=== PATIENT | female | born 1945 | race African-American/Black ===

== ENCOUNTER 2017-10-18 15:59 | Emergency (ER) | payer MEDICARE, MEDICAID ==
[~2017-10-18] VITALS: Ht 162.6 cm; Wt 50.0 kg
[2017-10-18] MEDS ORDERED: TETANUS, DIPHTHERIA, PERTUSSIS VAC/PF 0.5ML (>7YR OLD) IM ONE (17:00)
[2017-10-18] MEDS ORDERED: CLONIDINE 0.2MG TABLET PO ONE (17:15)
[2017-10-18 17:29] LABS: CLARITY URINE CLOUDY (CLEAR); COLOR URINE YELLOW (YELLOW); KETONES URINE NEGATIVE (NEGATIVE); LEUKOCYTE ESTERASE URINE NEGATIVE (NEGATIVE); NITRITE URINE NEGATIVE (NEGATIVE); OCCULT BLOOD URINE NEGATIVE (NEGATIVE); PH URINE 5.5 (4.5-8.0); PROTEIN URINE NEGATIVE (NEGATIVE); SPECIFIC GRAVITY URINE 1.015 (1.005-1.030)
[2017-10-18 17:32] LABS: BASOPHILS % 0.6 % (0.0-2.0); EOSINOPHILS % 0.4 % (0.0-5.0); HEMATOCRIT. 36.2 % (36.0-48.0); HEMOGLOBIN. 12.3 g/dL (12.0-16.0); MEAN CORPUSCULAR HEMOGLOBIN 35.6 pg (28.0-32.0); MEAN CORPUSCULAR VOLUME 104.7 fL (81.0-99.0); MEAN PLATELET VOLUME 7.5 fl (7.4-10.4); PLATELET 385 x1000/uL (130-400); RED BLOOD CELL COUNT 3.46 mill/uL (4.2-5.4); RED CELL DISTRIBUTION WIDTH 13.5 % (11.6-14.6)
[2017-10-18 17:37] LABS: CHLORIDE 103 mEq/L (98-107)
[2017-10-18] MEDS ORDERED: LIDOCAINE HCL 4% CREAM 76GM TUBE TP STA (18:45)
[2017-10-18 19:21] VITALS: BP 160/84
[2017-10-18] MEDS ORDERED: POTASSIUM CHLORIDE 20MEQ TABLET SR PO ONE ×2 (19:45)
== END 2017-10-18 21:00 | disposition home or self-care (01) ==
LOC: ER 16:07
DX: S01.01XA Laceration without foreign body of scalp, initial encounter (principal); I10 Essential (primary) hypertension; W19.XXXA Unspecified fall, initial encounter; Y93.01 Activity, walking, marching and hiking; Y92.510 Bank as the place of occurrence of the external cause; Y99.8 Other external cause status
CPT/HCPCS: 12001; 36415; 70450; 80053; 81003; 84484; 85025; 90471; 90715; 93005; 99285

== ENCOUNTER 2017-10-29 19:27 | Emergency (ER) | payer MEDICARE, MEDICAID ==
[~2017-10-29] VITALS: Ht 137.2 cm; Wt 45.9 kg
[2017-10-29 23:00] VITALS: BP 152/73
== END 2017-10-30 | disposition home or self-care (01) ==
LOC: ER 20:22
DX: Z48.02 Encounter for removal of sutures (principal)
CPT/HCPCS: 99281

== ENCOUNTER 2018-07-23 21:30 | Inpatient (IN) | payer MEDICARE, MEDICAID ==
[~2018-07-23] VITALS: Ht 143.5 cm; Wt 52.3 kg
[2018-07-23] MEDS ORDERED: SODIUM CHLORIDE 0.9% 1,000 ML IV ONE (23:04)
[2018-07-23] MEDS ORDERED: BACITRACIN ZINC OINT UDPKT TOP ONE (23:15)
[2018-07-23] MEDS ORDERED: LIDOCAINE HCL/PF 1% 10 MG/ML 5ML VIAL IJ ONE (23:15)
[2018-07-23] MEDS ORDERED: TETANUS, DIPHTHERIA, PERTUSSIS VAC/PF 0.5ML (>7YR OLD) IM ONE (23:15)
[2018-07-24] VITALS (7 sets, daily range): BP systolic 132–172; BP diastolic 63–78
[2018-07-24 00:05] LABS: BASOPHILS % 0.8 % (0.0-2.0); EOSINOPHILS % 0.4 % (0.0-5.0); HEMATOCRIT. 35.3 % (36.0-48.0); HEMOGLOBIN. 11.4 g/dL (12.0-16.0); LYMPHOCYTES % 21.6 % (20.0-50.0); MEAN CORPUSCULAR HEMOGLOBIN 32.4 pg (28.0-32.0); MEAN CORPUSCULAR VOLUME 100.2 fL (81.0-99.0); MEAN PLATELET VOLUME 7.2 fl (7.4-10.4); MONOCYTES % 7.7 % (2.0-8.0); NEUTROPHILS % 69.5 % (40.0-76.0); PLATELET 292 x1000/uL (130-400); RED BLOOD CELL COUNT 3.53 mill/uL (4.2-5.4)
[2018-07-24 00:10] LABS: CHLORIDE 110 mEq/L (98-107)
[2018-07-24 00:14] LABS: ETHANOL BLOOD 281 mg/dL
[2018-07-24] MEDS ORDERED: BENA40TA9 PO (03:26)
[2018-07-24] MEDS ORDERED: LORAZEPAM 2MG/ML CPJ IV PRN (05:30)
[2018-07-24] MEDS ORDERED: HYDROCODONE/ACETAMINOPHEN 5/325MG TABLET PO PRN (05:30)
[2018-07-24] MEDS ORDERED: ACETAMINOPHEN 325MG TABLET PO PRN (05:30)
[2018-07-24] MEDS ORDERED: DOCUSATE SODIUM 100MG CAPSULE PO PRN (05:30)
[2018-07-24] MEDS ORDERED: GUAIFENESIN 200MG/10ML SUGAR FREE UDC PO PRN (05:30)
[2018-07-24] MEDS ORDERED: ONDANSETRON HCL 4MG/2ML INJ IV PRN (05:30)
[2018-07-24] MEDS ORDERED: MAGNESIUM/ALUMINUM HYDROXIDE/SIMETHICONE 30ML UDC PO PRN (05:30)
[2018-07-24] MEDS: SODIUM CHLORIDE 0.45% 1,000 ML IV SCH ×2 (06:08→19:50)
[2018-07-24] MEDS ORDERED: PNEUMOCOCCAL 23-VAL P-SAC VAC 0.5 ML IM ONE (08:00)
[2018-07-24] MEDS: THIAMINE HCL 100MG TABLET PO SCH (09:12)
[2018-07-24 11:19] LABS: CREATINE KINASE 97 IU/L (26-192)
[2018-07-24] MEDS: CLONIDINE 0.1MG TABLET PO PRN (15:20)
[2018-07-24 18:04] LABS: CREATINE KINASE 92 IU/L (26-192)
[2018-07-25] VITALS (7 sets, daily range): BP systolic 135–172; BP diastolic 50–92
[2018-07-25 06:23] LABS: BASOPHILS % 0.4 % (0.0-2.0); HEMATOCRIT. 32.5 % (36.0-48.0); LYMPHOCYTES % 22.2 % (20.0-50.0); MEAN CORPUSCULAR HEMOGLOBIN 33.8 pg (28.0-32.0); MEAN CORPUSCULAR VOLUME 100.2 fL (81.0-99.0); MEAN PLATELET VOLUME 7.5 fl (7.4-10.4); MONOCYTES % 12.2 % (2.0-8.0); NEUTROPHILS % 64.2 % (40.0-76.0); PLATELET 247 x1000/uL (130-400); RED BLOOD CELL COUNT 3.25 mill/uL (4.2-5.4); RED CELL DISTRIBUTION WIDTH 14.7 % (11.6-14.6)
[2018-07-25 07:10] LABS: CHLORIDE 109 mEq/L (98-107)
[2018-07-25] MEDS: THIAMINE HCL 100MG TABLET PO SCH (08:53)
[2018-07-25] MEDS: SODIUM CHLORIDE 0.45% 1,000 ML IV SCH (20:59)
[2018-07-26 00:09] VITALS: BP 154/78
[2018-07-26 04:00] VITALS: BP 124/59
[2018-07-26 08:00] VITALS: BP 164/72
[2018-07-26] MEDS: CLONIDINE 0.1MG TABLET PO PRN (08:22)
[2018-07-26] MEDS: THIAMINE HCL 100MG TABLET PO SCH (08:22)
[2018-07-26 10:50] VITALS: BP 164/72
== END 2018-07-26 12:21 | disposition home or self-care (01) | DRG 384 ==
LOC: ER 21:30 → 5WST 07-24 02:01 → EDBEDREQTM 07-24 02:04 → EDBEDREQ 07-24 02:04 → CANRESERV 07-24 02:12 → ENRESERV 07-24 02:12 → 7WST 07-25 15:30
PROVIDERS: ADMIT Hospitalist; ATTEND Hospitalist
PROC: 0HQ1XZZ Repair Face Skin, External Approach (ICD-10-PCS; principal; 2018-07-23)
DX: S01.81XA Laceration without foreign body of other part of head, initial encounter (principal); E87.5 Hyperkalemia; D64.9 Anemia, unspecified; E86.0 Dehydration; S00.12XA Contusion of left eyelid and periocular area, initial encounter; F10.229 Alcohol dependence with intoxication, unspecified; F10.239 Alcohol dependence with withdrawal, unspecified; W18.39XA Other fall on same level, initial encounter; I10 Essential (primary) hypertension; Z86.73 Personal history of transient ischemic attack (TIA), and cerebral infarction without residual deficits; Z87.891 Personal history of nicotine dependence; Y93.89 Activity, other specified; Y92.89 Other specified places as the place of occurrence of the external cause; Y99.8 Other external cause status
CPT/HCPCS: 36415; 71045; 82550; 84484; 90471; 90715; 90732; 93005; 93970; 96360; 97161; 99285; G0482; J3490; J7030